=== PATIENT | female | born 1950 | race Caucasian/White ===

== ENCOUNTER 2021-06-25 14:53 | Emergency (ER) | payer MEDICARE, OTHER, SELFPAY ==
[2021-06-25 14:55] VITALS: BP 172/92; PULSE 104; RESP 16; TEMP 37.1; O2SAT 100; BMI 27.0
--- NOTE | 2021-06-25 15:20 | RAD_ITS ---
STUDY: X-RAY CHEST REASON FOR EXAM: Female, 70 years old. SOB TECHNIQUE: PA and lateral views of the chest. COMPARISON: None. FINDINGS: The lungs are clear and expanded. There is no demonstrated pleural abnormality. Normal size heart. Normal mediastinum and cande. Normal visualized pulmonary arteries. Normal visualized aortic arch and descending thoracic aorta. There are diffuse degenerative changes of the visualized thoracic spine. Normal visualized ribs, clavicles, and shoulders. There is no demonstrated abnormality of the visualized soft tissue structures of the upper abdomen. RAD/Chest PA and Lateral IMPRESSION: Normal x-ray examination of the chest. Electronically Signed: Hernan Gonzalez MD at 15:47 EDT , Service support ,
[2021-06-25 15:42] VITALS: RESP 18; O2SAT 96
[2021-06-25 15:44] VITALS: O2SAT 100
--- NOTE | 2021-06-25 16:32 | EDS_ITS ---
HPI History of Present Illness Chief Complaint: Shortness of Breath Narrative Narrative: Patient presenting for evaluation secondary to high blood pressure and requesting her x-ray read. Patient has recent history of having coronavirus. She states that she recovered from that, but following that she was having issues as far as continued cough and some sore throat was placed on a course of steroids. States that the steroid course was complicated further by her developing oral thrush and a worsening sore throat. Patient states that she went back was seen again, was placed on nystatin and it was again placed on steroids. Patient reports that today she was laying down and felt as if there was some rattling in her chest. She looked this up on the Internet and informed her that she needed to seek medical care. Patient went to urgent care today had an x-ray, but while she was there she had elevated blood pressures. She does tend to get white coat syndrome she denies that she had any sort of chest pain or shortness of breath associated with this. When the patient had blood pressures in the 190s she was recommended to come to the emergency department. Patient does continue to complain of a sore throat she is only correction into her treatment of nystatin. Review of systems otherwise negative. [facility] Medical History Bronchitis COVID Allergy/AdvReac Type Severity Reaction Status Date / Time benzoyl peroxide Allergy Rash Verified 06/25/21 15:02 erythromycin base Allergy Rash Verified 06/25/21 15:01 Social History Smoking Status: Never smoker [facility] ED Constitutional Constitutional ED: Denies chills or fever(s) ENT ENT ED: Reports sore throat Cardiovascular Cardiovascular: Denies chest pain Respiratory/Chest Respiratory/Chest: Reports dyspnea Gastrointestinal Gastrointestinal: Denies abdominal pain, diarrhea, nausea or vomiting Genitourinary Genitourinary ED: Denies dysuria or hematuria Musculoskeletal Musculoskeletal: Denies back pain Integumentary Denies rash Neurologic Neurologic: Denies paresthesias or weakness Psychiatric Psychiatric: Denies depression Endocrine Endocrinology: Denies fatigue Allergic/Immunologic Allergic/Immunologic ED: Denies urticaria EXAM Physical Exam Const Vital Signs: 06/25/21 14:55 06/25/21 15:42 06/25/21 15:44 Temperature 98.7 F Temperature Source Temporal Pulse Rate 104 H Respiratory Rate 16 18 Respiratory Effort Normal Respiratory Depth Normal Respiratory Pattern Normal Blood Pressure 172/92 H Blood Pressure Mean 118 Pulse Ox 100 96 Oxygen Delivery Method Room Air Room Air Room Air Positive well nourished and well developed General Appearance ED: well developed and NAD HEENT Reports moist mucous membranes HEENT Narrative: Mild evidence of oral thrush on the posterior portion of the tongue Negative for trauma or tenderness Eyes EOMs intact bilaterally Neck no lymphadenopathy, supple and no JVD Chest Wall inspection of chest normal Resp normal respiratory effort and clear to auscultation bilaterally Cardio regular rate, regular rhythm, no murmurs and peripheral pulses 2+ throughout GI normal to inspection, nondistended, normoactive bowel sounds, non-tender and no masses Palpation: soft Back/Spine normal to inspection Extremity normal to inspection General Extremety ED: Negative for tenderness Neuro oriented x3 and no sensory deficits noted Sensorium / Orientation: alert Motor Exam: strength 5/5 throughout Psych mental status grossly normal Skin no rashes or lesions noted MDM MDM MDM Narrative Medical decision making narrative: Patient presented secondary to high blood pressure. On triage her BP was 172/92 when I evaluated the patient it was in the 140s she is asymptomatic from this. Patient does not seem to have risk for DVT or PE, she is not complaining of any chest pain hemoptysis she has no risk factors of such she is not hypoxic. Patient continues to complain of a sore throat and requested that I culture her throat. This was performed and is pending. I do not believe that further work-up is indicated she had a chest x- ray performed today and by my personal review as well as radiology is negative for any sort of acute process. Patient was given reassurance. Patient was recommended to finish her course of nystatin. She was recommended to follow-up with primary care. Radiography Diagnostic Testing: Radiology Impression Chest X-Ray 06/25/21 15:20 IMPRESSION: Normal x-ray examination of the chest. Electronically Signed: Hernan Gonzalez MD at 15:47 EDT , Service support , Discharge Plan Triage Chief Complaint: Shortness of Breath ED Provider: Fredy Mar Dx/Rx/DC Orders Clinical Impression: Oral thrush, Cough Instructions: Pretty Infection: Thrush, ED Bronchitis, No Antibiotic (Adult) Primary Care Provider: Jose Rafael Saini Referrals: Jose Rafael Saini MD [Primary Care Provider] - 1-2 Weeks Disposition Disposition: Home, Self Care
[2021-06-25 16:53] VITALS: BP 142/69; PULSE 88; RESP 16; O2SAT 97
== END 2021-06-25 16:57 | disposition home or self-care (01) ==
PROVIDERS: Emergency Provider Emergency Medicine; PCP Family Medicine
DX: B37.0 Candidal stomatitis (principal); R05 Cough; Z86.16 Personal history of COVID-19
CPT/HCPCS: 71046; 87070; 94760; 99282

== ENCOUNTER → 2024-06-24 | Outpatient (CLI) | payer MEDICARE, OTHER, SELFPAY ==
--- NOTE | 2024-06-24 12:47 | CT_ITS ---
INDICATION: SINUSITIS EXAMINATION: CT FACIAL BONES - CT Maxillofacial W/O Contrast Injection TECHNIQUE: Helically acquired images were obtained of the facial bones. A radiation dose optimization technique was used for this scan. The protocol utilizes one or more of the following dose reduction techniques: automated exposure control, adjustment of mA and/or kV according to patient size,and/or use of iterative reconstruction technique. IV Contrast dosage and agent: None. RADIATION DOSAGE (If Supplied By Facility): CTDIvol = ( 33.06 ) mGy, DLP = ( 734.68 ) mGycm COMPARISON: FINDINGS: SOFT TISSUES: No focal subcutaneous swelling. No discrete fluid collections. VISUALIZED PARANASAL SINUSES: Mild mucosal thickening in the left maxillary sinus.. VISUALIZED MASTOID AIR CELLS: Clear. FACIAL BONES, MANDIBLE AND TMJs: No displaced facial bone fracture. No lytic or blastic abnormality. VISUALIZED DENTITION: No periodontal osseous erosion. ORBITAL CONTENTS: Both globes, extraocular muscles and retrobulbar fat appear unremarkable. CT/Sinus/Facial Bone IMPRESSION: Mild left maxillary sinus mucosal thickening. Electronically Signed: Monty Alcocer DO at 19:41 EDT Reading Location ID and State: [facility] / [place] Tel [phone], Service support ,
== END | disposition home or self-care (01) ==
LOC: CT 12:42
PROVIDERS: PCP Family Medicine; Referring Provider Otolaryngology; Visit Provider Otolaryngology
DX: J32.9 Chronic sinusitis, unspecified (principal)
CPT/HCPCS: 70486

== ENCOUNTER → 2024-09-05 | Outpatient (CLI) | payer MEDICARE, OTHER, SELFPAY | END | disposition home or self-care (01) | LOC: LABSPEC 15:27 | PROVIDERS: PCP Family Medicine; Referring Provider Otolaryngology; Visit Provider Otolaryngology | DX: J32.9 Chronic sinusitis, unspecified (principal) | CPT/HCPCS: 87070; 87077; 87186; 87205 ==

== ENCOUNTER → 2025-05-18 | Outpatient (CLI) | payer MEDICARE, OTHER, SELFPAY | END | disposition home or self-care (01) | LOC: MTLAB 14:42 | PROVIDERS: PCP Student in an Organized Health Care Education/Training Program; Referring Provider Dermatology; Visit Provider Dermatology | DX: R68.2 Dry mouth, unspecified (principal) | CPT/HCPCS: 36415; 86038; 86235 ==

== ENCOUNTER → 2025-07-26 | Outpatient (CLI) | payer SELFPAY ==
[2025-07-26 13:54] LABS: SERUM TEARS COLLECTION SPECIMEN PROCESSED
== END | disposition home or self-care (01) ==
PROVIDERS: PCP Student in an Organized Health Care Education/Training Program; Referring Provider Ophthalmology; Visit Provider Ophthalmology
DX: H04.123 Dry eye syndrome of bilateral lacrimal glands (principal)